=== PATIENT | male | born 1990 | race Caucasian/White ===

== ENCOUNTER 2016-06-13 18:54 | Emergency (ER) | payer OTHER ==
[~2016-06-13] VITALS: Ht 172.7 cm; Wt 61.2 kg
[~2016-06-13 18:54] MED LIST: ADVIL,NUPRIN,M200 MG PO; BUPROPION XL300 MG PO; BUSPAR10 MG PO; CATAPRES0.1 MG G-TUBE; NOHOMEMEDS; PRILOSEC10 MG PO; SUBOXONE 8 M1 TABLET PO; VIVITROL380 MG/3.4 IM; ZOFRAN ODT4 MG PO
[2016-06-13 19:42] LABS: HEMATOCRIT 42.6 % (38.0-50.0); MCHC 32.9 G/DL (30.0-36.0); MCV 94.2 FL (86-99); MEAN PLAT.VOLUME 9.2 uM^3 (9.0-12.4); PLATELET COUNT 316 K/uL (156-360); RBC DIS.WIDTH-CV 11.9 % (11.8-14.6); RBC DIS.WIDTH-SD 41.5 % (39-53); RED BLOOD COUNT 4.52 M/uL (4.00-5.50); WHITE BLOOD COUNT 18.8 K/uL (4.1-10.2)
[2016-06-13 19:51] LABS: CHLORIDE 103 mEq/L (99-109); POTASSIUM 4.4 mEq/L (3.7-5.4); SODIUM 138 mEq/L (136-147)
[2016-06-13 19:53] LABS: GLUCOSE 142 mg/dL (70-99)
[2016-06-13 19:54] LABS: ANION GAP 10 MEQ/L (2-14)
[2016-06-13 19:55] LABS: TOTAL BILIRUBIN 0.5 mg/dL (0.0-1.0)
[2016-06-13 19:56] LABS: ALKALINE PHOSPHATASE 101 IU/L (3-129)
[2016-06-13 19:57] LABS: GFR ESTIMATE (CALCULATED) > 59 mL/min/
[2016-06-13 19:58] LABS: UREA NITROGEN (BUN) 9 mg/dL (9-23)
[2016-06-13 20:29] LABS: ADD MIUA? NO; BILIRUBIN NEGATIVE; BLOOD NEGATIVE; COLOR YELLOW ((YELLOW)); GLUCOSE (STRIP) NEGATIVE; KETONES NEGATIVE; LEUKOCYTES NEGATIVE; NITRITE NEGATIVE; PROTEIN (STRIP) NEGATIVE; SPECIFIC GRAVITY 1.013 (1.000-1.030); UCUL ADDED? NO; UROBILINOGEN 0.2 MG/DL (0.2-1.0)
[2016-06-13 22:23] LABS: ABS NEUTROPHIL COUNT 16.8; ANISOCYTOSIS 1+; ATYPICAL LYMPHOCYTE 0.9 %; BAND NEUTROPHILS 6.9 % (0-8.0); EOSINOPHIL ABS CT 0; LYMPHOCYTES 6.1 % (15.0-45.0); MICROCYTOSIS 1+; SEG.NEUTROPHILS 82.6 % (46.0-76.0); SMUDGE CELLS 2.6; STOMATOCYTES 1+
[2016-06-13] MEDS ORDERED: NORCO 5/3251 TABLET PO (23:32)
[2016-06-13] MEDS ORDERED: BENTYL10 MG PO (23:32)
[2016-06-14 00:06] VITALS: BP 105/70
== END 2016-06-14 00:10 | disposition home or self-care (01) ==
LOC: EME 18:54
DX: R10.31 Right lower quadrant pain (principal); R11.2 Nausea with vomiting, unspecified; R19.7 Diarrhea, unspecified; J02.9 Acute pharyngitis, unspecified; R05 Cough; F17.200 Nicotine dependence, unspecified, uncomplicated
CPT/HCPCS: 74177; 80053; 81003; 85007; 85025; 85027; 99281; 99285; J1885; J2405; J3010; J7030